=== PATIENT | female | born 1985 | race Two or more races ===

== ENCOUNTER 2019-09-06 12:33 | Inpatient (IN) | payer MEDICAID ==
[~2019-09-06] VITALS: Ht 160 cm; Wt 91.6 kg
[2019-09-06] MEDS ORDERED: SODIUM CHLORIDE 0.9% 1,000 ML IVB ONE (13:01)
[2019-09-06] MEDS ORDERED: PROMETHAZINE HCL 25 MG/ML 1ML IV PRN (13:15)
[2019-09-06 13:52] LABS: Eosinophils # (auto) 0.1 10 ^3/uL (0-0.8); Lymphocytes # (auto) 1.4 10 ^3/uL (0.4-5.4); Mean Corpuscular Hemoglobin 22.8 pg (28.0-32.0); Neutrophils # (auto) 5.7 10 ^3/uL (1.6-8.6); White Blood Cell 7.8 10^3/uL (4.4-10.8)
[2019-09-06 13:54] LABS: Basophils # (auto) 0.1 10 ^3/uL (0-0.2); Basophils % (auto) 0.7 % (0.0-2.0); Eosinophils % (auto) 1.3 % (0.0-7.0); Hematocrit 37.3 % (36.0-46.0); Hemoglobin 11.7 g/dL (12.2-16.2); Lymphocytes % (auto) 17.8 % (10.0-50.0); Mean Corpuscular Hgb Conc. 31.5 g/dL (32.0-36.0); Mean Corpuscular Volume 72.4 fL (80.0-100.0); Monocytes # (auto) 0.6 10 ^3/uL (0-1.3); Monocytes % (auto) 7.2 % (0.0-12.0); Platelet Count (auto) 417 10^3/uL (140-450); Red Blood Cells 5.16 10^6/uL (4.0-5.20); Red Cell Distribution Width 17.7 % (11.8-14.3)
[2019-09-06 14:11] LABS: Albumin 3.9 g/dL (3.4-5.0); BUN/Creatinine Ratio 12.4; Calcium 8.8 mg/dL (8.5-10.1); Magnesium 2.6 mg/dL (1.6-2.6); Potassium 3.6 mmol/L (3.5-5.1)
[2019-09-06 14:14] LABS: Bilirubin, Total 0.3 mg/dL (0.2-1.0); Total Protein 8.7 g/dL (6.4-8.2)
[2019-09-06 14:23] LABS: Urine Bacteria FEW /hpf (None Seen); Urine Blood Negative /uL (Negative); Urine Mucus FEW (None Seen); Urine Specific Gravity 1.023 (1.001-1.035); Urine WBC 182 /hpf (0 - 5); Urine WBC Clumps PRESENT /hpf (None Seen)
[2019-09-06] MEDS ORDERED: MORPHINE SULF INJ 2 MG/ML SYRINGE 1ML IV ONE (14:30)
[2019-09-06] MEDS ORDERED: cefTRIAXone 1GM/50ML D5W 50 ML IV ONE (15:00)
[2019-09-06] MEDS ORDERED: TEMAZEPAM 15 MG CAP PO PRN (18:30)
[2019-09-06] MEDS: FAMOTIDINE (10MG/ML) 2ML VL IV SCH (18:30)
[2019-09-06] MEDS ORDERED: ACETAMINOPHEN 500 MG TAB PO PRN (18:30)
[2019-09-06] MEDS ORDERED: MORPHINE SULF INJ 2 MG/ML SYRINGE 1ML IV PRN (18:30)
[2019-09-06] MEDS ORDERED: traMADol HCL 50 MG TAB PO PRN (18:30)
[2019-09-06] MEDS ORDERED: NITROGLYCERIN 0.4 MG SL TAB SL PRN (18:30)
[2019-09-06] MEDS ORDERED: SODIUM CHLORIDE 0.9% 2,450 ML IV ONE (18:30)
[2019-09-06] MEDS: MORPHINE SULF INJ 2 MG/ML SYRINGE 1ML IV PRN (18:45)
[2019-09-06 18:47] LABS: Amylase 64 U/L (25-115); Lipase 52 U/L (73-393)
[2019-09-06] MEDS ORDERED: LEVOTHYROXINE SODIUM 50 MCG TAB PO ONE (19:00)
[2019-09-06 22:00] VITALS: BP 139/97
--- NOTE | 2019-09-06 22:00 | NUR ---
MS admit from ER LOGAN TRUJILLO R admitted to tele/MS. Patient oriented to ALEXANDRA GARCIA RN, room 237. Patient weighed by bedscale and encouraged to call if they need something. All questions and concerns addressed, patient verbalized understanding. No S/S of distress or SOB. Patient reporting pain in her abdomen rated 10/10. Will medicate for pain as ordered. Bed locked, in lowest position, call light within reach, side rails up x2. Will continue to monitor Q 1 hr and PRN.
[2019-09-06] MEDS: PROMETHAZINE HCL 25 MG/ML 1ML IV PRN (22:12)
[2019-09-06] MEDS: SODIUM CHLORIDE 0.9% 1,000 ML IV SCH (22:22)
[2019-09-07] MEDS: MORPHINE SULF INJ 2 MG/ML SYRINGE 1ML IV PRN ×6 (00:35→21:37)
[2019-09-07] MEDS: PROMETHAZINE HCL 25 MG/ML 1ML IV PRN ×5 (04:37→21:36)
[2019-09-07] MEDS: SODIUM CHLORIDE 0.9% 1,000 ML IV SCH ×2 (04:37→14:33)
[2019-09-07 05:00] VITALS: BP 137/87
[2019-09-07] MEDS: FAMOTIDINE (10MG/ML) 2ML VL IV SCH (06:29)
[2019-09-07] MEDS ORDERED: LEVOTHYROXINE SODIUM 50 MCG TAB PO SCH (07:00)
--- NOTE | 2019-09-07 08:00 | NUR ---
OPENING SHIFT NOTE: PATIENT RESTING IN BED. RESPIRATIONS EVEN AND UNLABORED. PATIENT DENIES ANY COUGH OR ANY SOB. PATIENT HAS NO S/S OF DISTRESS AT THIS TIME. PATIENT UPDATED ON POC. PATIENT REPORTS THAT SHE HAD ONE OF EPISODE OF EMESIS EARLIER THIS AM. PATIENT IS COMPLAINING OF NAUSEA AND PAIN TO MID GASTRIC AREA 11/19, NON RADIATING. WILL MEDICATED PER EMAR. REPORTS EPISODES OF NAUSEA AND PAIN HAS HAPPENED BEFORE WHEN SHE SMOKED MARIJUANA. ADMITS TO SMOKING AGAIN. DENIES ANY OTHER SUBSTANCE USE. PATIENT UPDATED ON POC. BED IN LOWEST LOCKED POSITION WITH CALL LIGHT WITHIN REACH.
[2019-09-07 08:38] VITALS: BP 154/97
[2019-09-07] MEDS ORDERED: cefTRIAXone 1GM/50ML D5W 50 ML IV SCH (09:00)
[2019-09-07] MEDS: PANTOPRAZOLE 40 MG/10 ML VIAL INJ IV SCH ×2 (12:34→21:36)
[2019-09-07 12:45] VITALS: BP 137/97
[2019-09-07] MEDS ORDERED: LEVO175T31 PO (14:09)
--- NOTE | 2019-09-07 14:20 | NUR ---
CRISTIAN FRIEND REGARDING PATIENTS UPDATED MED REC. AWAITING CALL BACK.
[2019-09-07] MEDS: levoFLOXacin 500MG 100 ML IV SCH (14:34)
--- NOTE | 2019-09-07 15:08 | NUR ---
PATIENT TRANSFERRED TO ROOM 202. PATIENT ON CONTINOUS TELEMETRY READING. PATIENT HAS NO S/S OF DISTRESS NOTED. REPORT GIVEN TO VIRIDIANA DE LA TORRE.
--- NOTE | 2019-09-07 15:09 | NUR ---
INFORMED TELE OFFICE OF PATIENT BEING TRANPORTED TO ROOM 202.
--- NOTE | 2019-09-07 15:30 | NUR ---
Telemetry patient transferred from [facility],LOGAN R transferred from [facility]. Patient oriented to WIL SOUZA RN primary RN, unit, room, bed, and unit policies regarding patient care. Patient now on continuous telemetry monitoring, tele box # 32 and telemetry reading on arrival to unit is sinus rhythm 64. Patient is on room air, respirations even and unlabored. Patient denies pain at this time. Reviewed plan of care with patient, patient verbalized understanding. Bed in low and locked position, call light within reach. Will continue to monitor Q1 hour and PRN.
--- NOTE | 2019-09-07 17:40 | NUR ---
Dr. Wilfrid Holland at bedside Discussing plan of care with patient and this RN. Will call lab to follow up on blood work that has not be completed. Will continue to monitor Q1 hour and PRN.
[2019-09-07 17:52] VITALS: BP 129/72
--- NOTE | 2019-09-07 17:58 | NUR ---
Pain and Vomiting Patient is vomiting and states abdominal pain is 10/10. Will medicate per orders. Will continue to monitor Q1 hour and PRN.
--- NOTE | 2019-09-07 18:28 | NUR ---
Pain reassessment Patient resting in bed with eyes closed. No signs or symptoms of distress noted at this time. Bed in low and locked position, call light within reach. Will continue to monitor Q1 hour and PRN.
[2019-09-07 18:42] LABS: Basophils # (auto) 0 10 ^3/uL (0-0.2); Eosinophils # (auto) 0 10 ^3/uL (0-0.8); Eosinophils % (auto) 0.3 % (0.0-7.0)
[2019-09-07 18:44] LABS: Basophils % (auto) 0.4 % (0.0-2.0); Hematocrit 38.4 % (36.0-46.0); Lymphocytes % (auto) 10.2 % (10.0-50.0); Mean Corpuscular Hemoglobin 22.6 pg (28.0-32.0); Mean Corpuscular Hgb Conc. 31.2 g/dL (32.0-36.0); Mean Corpuscular Volume 72.5 fL (80.0-100.0); Monocytes # (auto) 0.6 10 ^3/uL (0-1.3); Monocytes % (auto) 6.5 % (0.0-12.0); Neutrophils % (auto) 82.6 % (37.0-80.0); Nucleated Red Blood Cells % 0.1 %; Platelet Count (auto) 389 10^3/uL (140-450); Red Cell Distribution Width 17.6 % (11.8-14.3); White Blood Cell 9.6 10^3/uL (4.4-10.8)
[2019-09-07 18:55] LABS: Calcium 8.7 mg/dL (8.5-10.1); Potassium 3.1 mmol/L (3.5-5.1)
[2019-09-07 19:01] LABS: BUN/Creatinine Ratio 7.2
--- NOTE | 2019-09-07 19:07 | NUR ---
Closing Note Report given to shift engineer RN. No signs or symptoms of distress.
[2019-09-07 22:00] VITALS: BP 128/79
[2019-09-07] MEDS: SOD CHL 0.9%/ KCL 20MEQ 1,000 ML IV SCH (22:15)
[2019-09-08] MEDS: ATORVASTATIN 20 MG TAB PO SCH ×2 (01:03→22:03)
[2019-09-08] MEDS: MORPHINE SULF INJ 2 MG/ML SYRINGE 1ML IV PRN ×5 (02:47→21:23)
[2019-09-08] MEDS: PROMETHAZINE HCL 25 MG/ML 1ML IV PRN ×5 (02:47→21:23)
[2019-09-08] MEDS: POTASSIUM CHL 20MEQ/100ML 100 ML IV SCH ×2 (02:48)
[2019-09-08 05:00] VITALS: BP 155/98
[2019-09-08 06:18] LABS: Basophils # (auto) 0 10 ^3/uL (0-0.2); Basophils % (auto) 0.4 % (0.0-2.0); Eosinophils # (auto) 0 10 ^3/uL (0-0.8); Eosinophils % (auto) 0.4 % (0.0-7.0); Hematocrit 37.2 % (36.0-46.0); Hemoglobin 11.7 g/dL (12.2-16.2); Lymphocytes # (auto) 1.2 10 ^3/uL (0.4-5.4); Lymphocytes % (auto) 14.3 % (10.0-50.0); Mean Corpuscular Hemoglobin 22.8 pg (28.0-32.0); Mean Corpuscular Hgb Conc. 31.4 g/dL (32.0-36.0); Mean Corpuscular Volume 72.8 fL (80.0-100.0); Monocytes # (auto) 0.5 10 ^3/uL (0-1.3); Monocytes % (auto) 6.4 % (0.0-12.0); Neutrophils # (auto) 6.4 10 ^3/uL (1.6-8.6); Neutrophils % (auto) 78.5 % (37.0-80.0); Platelet Count (auto) 398 10^3/uL (140-450); Red Blood Cells 5.11 10^6/uL (4.0-5.20); Red Cell Distribution Width 17.5 % (11.8-14.3); White Blood Cell 8.2 10^3/uL (4.4-10.8)
[2019-09-08 06:37] LABS: Potassium 3.7 mmol/L (3.5-5.1)
[2019-09-08] MEDS: LEVOTHYROXINE SODIUM 25 MCG TAB PO SCH (06:43)
[2019-09-08] MEDS: LEVOTHYROXINE SODIUM 100 MCG TAB PO SCH (06:43)
[2019-09-08 06:44] LABS: BUN/Creatinine Ratio 8.6; Calcium 8.8 mg/dL (8.5-10.1)
--- NOTE | 2019-09-08 07:30 | NUR ---
RECEIVED REPORT FROM NIGHT NURSE. PATIENT RESTING IN BED, NO DISTRESS NOTED.
[2019-09-08 08:24] VITALS: BP 143/99
[2019-09-08] MEDS: SOD CHL 0.9%/ KCL 20MEQ 1,000 ML IV SCH ×2 (10:45→17:05)
[2019-09-08] MEDS: levoFLOXacin 500MG 100 ML IV SCH (10:45)
[2019-09-08] MEDS: PANTOPRAZOLE 40 MG/10 ML VIAL INJ IV SCH ×2 (10:45→22:03)
--- NOTE | 2019-09-08 11:00 | NUR ---
PATIENT TAKING SHOWER.
[2019-09-08 12:35] VITALS: BP 166/111
--- NOTE | 2019-09-08 15:27 | NUR ---
PATIENT TAKING SHOWER.
--- NOTE | 2019-09-08 16:32 | NUR ---
PATIENT TAKING A SHOWER.
[2019-09-08 16:43] VITALS: BP 159/96
--- NOTE | 2019-09-08 19:00 | NUR ---
Opening Shift Note Assumed care of patient, awake and alert. Instructed on POC and to call for assist PRN, will continue to monitor for changes Q1hr and PRN.
--- NOTE | 2019-09-08 20:50 | NUR ---
Pt took a shower.
[2019-09-08 22:00] VITALS: BP 141/89
[2019-09-08] MEDS: metroNIDAZOLE 500MG/100ML 100 ML IV SCH (22:04)
[2019-09-09] VITALS (7 sets, daily range): BP systolic 129–156; BP diastolic 87–107
--- NOTE | 2019-09-09 00:45 | NUR ---
Pt took a shower.
[2019-09-09] MEDS: PROMETHAZINE HCL 25 MG/ML 1ML IV PRN ×6 (01:15→23:11)
[2019-09-09] MEDS: MORPHINE SULF INJ 2 MG/ML SYRINGE 1ML IV PRN ×6 (01:15→23:11)
[2019-09-09] MEDS: SOD CHL 0.9%/ KCL 20MEQ 1,000 ML IV SCH ×3 (04:15→22:38)
[2019-09-09] MEDS: metroNIDAZOLE 500MG/100ML 100 ML IV SCH ×3 (05:18→21:33)
[2019-09-09 06:10] LABS: Basophils # (auto) 0 10 ^3/uL (0-0.2); Basophils % (auto) 0.2 % (0.0-2.0); Hematocrit 37.1 % (36.0-46.0); Monocytes % (auto) 6.8 % (0.0-12.0); Red Cell Distribution Width 17.8 % (11.8-14.3)
[2019-09-09 06:12] LABS: Eosinophils # (auto) 0 10 ^3/uL (0-0.8); Eosinophils % (auto) 0.6 % (0.0-7.0); Hemoglobin 11.8 g/dL (12.2-16.2); Lymphocytes # (auto) 1.5 10 ^3/uL (0.4-5.4); Lymphocytes % (auto) 18.9 % (10.0-50.0); Mean Corpuscular Hgb Conc. 31.8 g/dL (32.0-36.0); Mean Corpuscular Volume 72.5 fL (80.0-100.0); Monocytes # (auto) 0.5 10 ^3/uL (0-1.3); Neutrophils # (auto) 5.9 10 ^3/uL (1.6-8.6); Neutrophils % (auto) 73.5 % (37.0-80.0); Nucleated Red Blood Cells % 0.1 %; Platelet Count (auto) 364 10^3/uL (140-450); Red Blood Cells 5.12 10^6/uL (4.0-5.20)
[2019-09-09 06:30] LABS: Potassium 3.6 mmol/L (3.5-5.1)
[2019-09-09 06:44] LABS: BUN/Creatinine Ratio 12.3; Calcium 8.7 mg/dL (8.5-10.1)
[2019-09-09] MEDS: LEVOTHYROXINE SODIUM 25 MCG TAB PO SCH (06:52)
[2019-09-09] MEDS: LEVOTHYROXINE SODIUM 100 MCG TAB PO SCH (06:52)
--- NOTE | 2019-09-09 07:20 | NUR ---
Opening Shift Note Assumed care of patient, awake and alert X4. No S/S of distress/SOB or pain noted at this time, on room air, no N/V noted at this time, HOB >30. Instructed on POC and to call for assist PRN, call light within reach, will continue to monitor for changes Q1hr and PRN.
--- NOTE | 2019-09-09 09:19 | NUR ---
PT TAKING A SHOWER PT AXOX4, NO DISTRESS NOTED, CONT TO C/O NAUSEA, NO EMESIS AT THIS TIME, NO CURRENT ORDER TO SHOWER AND PT IS ON CONTINUOUS TELEMETRY, PT STATES " DR PORTILLO TOLD ME TO TAKE HOT SHOWERS AND I HAVE BEEN TAKING SHOWERS", CONT CARE
[2019-09-09] MEDS: levoFLOXacin 500MG 100 ML IV SCH (10:05)
[2019-09-09] MEDS: PANTOPRAZOLE 40 MG/10 ML VIAL INJ IV SCH ×2 (10:05→21:33)
--- NOTE | 2019-09-09 10:20 | NUR ---
GI DR PORTILLO AT BEDSIDE, DISCUSSING POC, STATES HE HAD INSTRUCTED PT TO TAKE WARM BATHS TO EASE N/V, ORDER ENTERED
--- NOTE | 2019-09-09 14:07 | NUR ---
Est energy needs [id number] kcal (20-23 kcal/kg BW 90.6kg) Est protein needs 58-86g (1-1.5g/kg BW 90.6kg) Will reassess prn. Addendum: 09/09/19 at [address] Amended: Links added.
--- NOTE | 2019-09-09 18:25 | NUR ---
ACTIVITY NOTED PT AMBULATING, NO DISTRESS NOTED, GAIT STEADY, CONT CARE
--- NOTE | 2019-09-09 19:30 | NUR ---
Opening note Patient resting in bed with even and unlabored respirations, no distress noted. Instructed patient on POC, fall precautions and to call for assistance as needed. Patient verbalized understanding. Fall precautions in place with call light within reach.
--- NOTE | 2019-09-09 20:56 | NUR ---
Patient's mother called for an update No password on account. Patient resting in bed with eyes closed. Patient stated "Tell her I will call her tomorrow." Message provided to patient's mother. Patient's mother verbalized understanding.
[2019-09-09] MEDS: ATORVASTATIN 20 MG TAB PO SCH (21:33)
--- NOTE | 2019-09-09 21:38 | NUR ---
Patient resting in bed with even and unlabored respirations, no distress noted. Fall precautions in place with call light within reach.
--- NOTE | 2019-09-09 22:42 | NUR ---
Patient requesting to take a shower IV covered and secured. Fall and safety precautions instructed to the patient. Patient verbalized understanding.
--- NOTE | 2019-09-09 23:22 | NUR ---
Patient returned to bed with no complications noted Patient requested PRN pain medication and PRN anti-nausea medication. Medications administered per MD order.
[2019-09-10] VITALS (7 sets, daily range): BP systolic 117–145; BP diastolic 80–98
--- NOTE | 2019-09-10 02:42 | NUR ---
Patient resting in bed with eyes closed respirations even and unlabored respirations, no distress noted. Fall precautions in place with call light within reach.
--- NOTE | 2019-09-10 03:14 | NUR ---
Patient resting in bed in semi-fowlers position respirations even and unlabored, no distress noted. Eyes closed. Family at bedside. Addendum: 09/10/19 at 0317 by Urvashi Ness RN No family at bedside.
--- NOTE | 2019-09-10 03:33 | NUR ---
Care endorsed to VIRIDIANA Underwood.
--- NOTE | 2019-09-10 03:35 | NUR ---
PT CARE RESUMED Assumed care of patient, awake and alert X4. No S/S of distress/SOB noted at this time, on room air, currently c/o N/V and abd pain and will medicate as ordered, HOB >30, IV 20g patent to left ac, Instructed on POC and to call for assist PRN, call light within reach, will continue to monitor for changes Q1hr and PRN.
[2019-09-10] MEDS: PROMETHAZINE HCL 25 MG/ML 1ML IV PRN ×5 (03:58→19:48)
[2019-09-10] MEDS: MORPHINE SULF INJ 2 MG/ML SYRINGE 1ML IV PRN ×5 (03:59→19:47)
[2019-09-10 05:48] LABS: BUN/Creatinine Ratio 12.2; Calcium 8.4 mg/dL (8.5-10.1); Potassium 3.3 mmol/L (3.5-5.1)
[2019-09-10] MEDS: LEVOTHYROXINE SODIUM 100 MCG TAB PO SCH (06:32)
[2019-09-10] MEDS: metroNIDAZOLE 500MG/100ML 100 ML IV SCH ×3 (06:32→21:35)
[2019-09-10] MEDS: LEVOTHYROXINE SODIUM 25 MCG TAB PO SCH (06:33)
[2019-09-10] MEDS: PANTOPRAZOLE 40 MG/10 ML VIAL INJ IV SCH ×2 (08:15→21:35)
[2019-09-10] MEDS: levoFLOXacin 500MG 100 ML IV SCH (08:15)
[2019-09-10] MEDS: SOD CHL 0.9%/ KCL 20MEQ 1,000 ML IV SCH ×2 (10:15→20:15)
--- NOTE | 2019-09-10 12:05 | NUR ---
MD UPDATE SPOKE WITH DR Wilfrid LIANG, UPDATED ON PT CURRENT STATUS, PT CONT TO C/O ABD PAIN AND NAUSEA, ORRDER OBTAINED TO ADVANCE DIET TO SOFT, HE WILL COME SEE PT SOON
--- NOTE | 2019-09-10 18:15 | NUR ---
GI CLEARANCE SPOKE WITH DR PORTILLO, STATES IF PATIENT IS TILL SYMPTOMATIC, THEN PATIENT IS NOT CLEARED FOR DISCHARGE AND CHANGE DIET TO FULL LIQUID, WILL NOTIFY DR LIANG
--- NOTE | 2019-09-10 18:25 | NUR ---
AT BEDSIDE DR LIANG AT BEDSIDE, AWARE DR PORTILLO DID NOT CLEAR PT FOR DC, ORDER EDITED AND WILL CONT CARE
--- NOTE | 2019-09-10 19:15 | NUR ---
OPENING SHIFT NOTE Assumed care of patient who is A&O x4. Currently on RA with no s/s of distress. Reports nausea and abdominal pain after attempting to eat. Patient to be medicated according to orders. Patient is ambulatory without the use of assistive devices. PIV in left AC is intact and patent. IVF infusing as ordered. POC discussed and all questions answered. Bed is in low locked position with side rails up x2. Call light is within reach and patient encouraged to call for assistance when needed. Will continue to monitor for changes PRN.
[2019-09-10] MEDS: ATORVASTATIN 20 MG TAB PO SCH (21:35)
[2019-09-11] VITALS (7 sets, daily range): BP systolic 113–136; BP diastolic 73–85
[2019-09-11] MEDS: MORPHINE SULF INJ 2 MG/ML SYRINGE 1ML IV PRN ×6 (01:16→23:46)
[2019-09-11] MEDS: PROMETHAZINE HCL 25 MG/ML 1ML IV PRN ×4 (01:17→23:46)
--- NOTE | 2019-09-11 01:25 | NUR ---
PAIN/NAUSEA Patient reports 6/10 diffuse abdominal pain and nausea. Medicated according to orders. Will continue to monitor.
--- NOTE | 2019-09-11 06:15 | NUR ---
PAIN/NAUSEA Patient reports abdominal pain and nausea, requesting medication. Morphine 2mg administered according to orders. Patient reports pain to IV site with flushing following administration of medication. Phenergan not administered. New IV access to be obtained.
--- NOTE | 2019-09-11 06:25 | NUR ---
IV removal IV to left AC is painful. DC'd with clean sterile technique, catheter fully intact. Pressure dressing applied to site. Patient tolerated well.
[2019-09-11] MEDS: metroNIDAZOLE 500MG/100ML 100 ML IV SCH ×3 (06:37→22:52)
[2019-09-11] MEDS: SOD CHL 0.9%/ KCL 20MEQ 1,000 ML IV SCH ×2 (06:37→16:15)
[2019-09-11] MEDS: LEVOTHYROXINE SODIUM 25 MCG TAB PO SCH (06:41)
[2019-09-11] MEDS: LEVOTHYROXINE SODIUM 100 MCG TAB PO SCH (06:41)
--- NOTE | 2019-09-11 07:30 | NUR ---
Opening Shift Note Assumed care of patient, awake and alert. No S/S of distress/SOB or pain. Instructed on POC and to call for assist PRN, will continue to monitor for changes Q1hr and PRN. Bed is locked and in lowest position. Call light within reach.
--- NOTE | 2019-09-11 09:00 | NUR ---
IV PLACEMENT PATIENT DID NOT HAVE IV ACCESS FOR MEDICATION ADMINISTRATION. PATIENT VERBALIZED UNDERSTANDING OF IV REQUIRED. IV PLACED ON LEFT HAND 20 G USING CLEAN AND STERILE TECHNIQUE. IV IS CLEAN AND INTACT. PATIENT TOLERATED IV INSERTION WITH NO SIGNS OF DISTRESS OR PAIN.
[2019-09-11] MEDS: PANTOPRAZOLE 40 MG/10 ML VIAL INJ IV SCH ×2 (09:52→22:51)
[2019-09-11] MEDS: levoFLOXacin 500MG 100 ML IV SCH (09:53)
--- NOTE | 2019-09-11 11:58 | NUR ---
Nutrition Followup Notes Pt wt is 92.2 kg Pt was sleeping with no relatives at bedside when rounded this morning. Pt is with a regular diet, appetite is poor aeb ave 25% x5 PO intake per RN doc. Noted pt abd pain is improving. Will continue to monitor PO status, skin status, pertinent labs and weight trends. Will f/u in 3-5 days. Est energy needs [id number] kcal (20-23 kcal/kg BW 90.6kg) Est protein needs 58-86g (1-1.5g/kg BW 90.6kg) Will reassess prn. LABS: POT 3.3 L, TRIGLYC 261 H, LDL 124 H GI: Pt had BM on 09/01 per RN doc BS: 22 low risk Refer to wound assessment report for full details. PES: Obesity r/t caloric intake in excess of needs aeb pt with BMI of 35.4kg/m2 Comments 1) Continue to monitor po intake, labs, skin 2) Refer pt to [facility] on dc 3) Continue current plan of care
--- NOTE | 2019-09-11 15:05 | NUR ---
IV insertion IV access obtained, via clean sterile technique by inserting 20 gauge catheter at RAC after 2 attempts. IV secured properly. No trauma to site. Patient tolerated procedure well.
--- NOTE | 2019-09-11 16:15 | NUR ---
assessment Patient has no post discharge needs identified. Addendum: 09/11/19 at 1615 by Karolina ANGUIANO Amended: Links added.
--- NOTE | 2019-09-11 16:50 | NUR ---
GI SPOKE WITH DR BANDAR MD INFORMED PT WAS REQUESTING A SALAD FOR DINNER, PT CONT TO C/O NAUSEA AND ABDOMINAL PAIN, DR PORTILLO STATES SHE WILL CONT WITH A PUREED DIET. PT AWARE
[2019-09-11] MEDS: ATORVASTATIN 20 MG TAB PO SCH (22:51)
[2019-09-12] MEDS: SOD CHL 0.9%/ KCL 20MEQ 1,000 ML IV SCH (02:15)
--- NOTE | 2019-09-12 03:05 | NUR ---
PT ROUNDS PT CURRENTLY SLEEPING, BREATHING EVEN AND UNLABORED, ON ROOM AIR, NO DISTRESS NOTED, EASILY AWAKENED VIA VERBAL STIMULI, NO C/O PAIN OR NAUSEA AT THIS TIME, BED ALARM ON AND CALL LIGHT WITHIN REACH
[2019-09-12] MEDS: MORPHINE SULF INJ 2 MG/ML SYRINGE 1ML IV PRN (04:33)
[2019-09-12] MEDS: PROMETHAZINE HCL 25 MG/ML 1ML IV PRN ×2 (04:33→09:35)
[2019-09-12 05:14] VITALS: BP 123/81
[2019-09-12] MEDS ORDERED: POTASSIUM EFFERVESENT TAB 25 MEQ PO ONE (06:15)
[2019-09-12] MEDS ORDERED: ACETAMINOPHEN 500 MG TAB PO PRN (06:30)
[2019-09-12] MEDS ORDERED: PROM25TA5 OR (06:40)
[2019-09-12] MEDS ORDERED: LEVOTHYROXINE SODIUM 88 MCG TAB PO SCH ×2 (07:00)
[2019-09-12 08:00] VITALS: BP 123/81
[2019-09-12 09:29] VITALS: BP 123/81
[2019-09-12] MEDS: PANTOPRAZOLE 40 MG/10 ML VIAL INJ IV SCH (09:35)
--- NOTE | 2019-09-12 10:00 | NUR ---
Dr. Prestno Holland came over, patient can be discharged today. Piter Montes De Oca said patient can be discharged as per GI perspective. Patient able to tolerate regular breakfast.
--- NOTE | 2019-09-12 11:20 | NUR ---
Discharge instructions given as ordered. Encourage to follow up with PMD as instructed. All questions and concerns addressed. Patient verbalized understanding. Medication reconciliation form completed and copy given to patient. IV removed with catheter intact, pressure dressing applied. Telemetry unit returned to ICU. Patient is ambulatory, has signed AMA form to smoke downstairs, patient refused to be taken to vehicle via wheelchair, patient with all personal belongings. Patient said her car is parked at the parking area, she will drive home. No narcotic given. No distress noted at time of departure.
== END 2019-09-12 11:20 | disposition home or self-care (01) | DRG 249 ==
LOC: ER 12:33 → TELE 12:34 → TELE-EAST 21:05 → TELE-CENTR 09-07 15:30
PROVIDERS: ADMIT Internal Medicine; ATTEND Internal Medicine
DX: R11.2 Nausea with vomiting, unspecified (principal); E66.01 Morbid (severe) obesity due to excess calories; F12.988 Cannabis use, unspecified with other cannabis-induced disorder; N39.0 Urinary tract infection, site not specified; D64.9 Anemia, unspecified; E03.9 Hypothyroidism, unspecified; F12.90 Cannabis use, unspecified, uncomplicated; Z20.828 Contact with and (suspected) exposure to other viral communicable diseases; E78.5 Hyperlipidemia, unspecified; E87.6 Hypokalemia; F17.210 Nicotine dependence, cigarettes, uncomplicated; Z82.49 Family history of ischemic heart disease and other diseases of the circulatory system; Z68.36 Body mass index [BMI] 36.0-36.9, adult; Z83.3 Family history of diabetes mellitus
CPT/HCPCS: 36415; 71045; 74176; 76705; 80048; 80053; 80061; 81001; 82150; 83605; 83690; 83735; 84443; 84702; 85025; 87040; 87086; 96365; 96375; C9113; G0378; J0696; J1956; J3480; J3490

== ENCOUNTER 2020-12-14 10:25 | Emergency (ER) | payer MEDICAID ==
[~2020-12-14] VITALS: Ht 160 cm; Wt 93.0 kg
[~2020-12-14 10:25] MED LIST: LEVO175T66 PO; PROM25TA5 OR
[2020-12-14] MEDS ORDERED: ONDANSETRON ODT 4 MG TAB PO ONE (10:45)
[2020-12-14] MEDS ORDERED: SODIUM CHLORIDE 0.9% 1,000 ML IVB ONE (10:45)
[2020-12-14 11:21] LABS: Basophils # (auto) 0 10 ^3/uL (0-0.2); Eosinophils # (auto) 0.1 10 ^3/uL (0-0.8); Lymphocytes # (auto) 1.5 10 ^3/uL (0.4-5.4); Monocytes # (auto) 0.5 10 ^3/uL (0-1.3); Neutrophils # (auto) 5.7 10 ^3/uL (1.6-8.6); Red Cell Distribution Width 17.1 % (11.8-14.3)
[2020-12-14 11:25] LABS: Basophils % (auto) 0.6 % (0.0-2.0); Hematocrit 35.1 % (36.0-46.0); Hemoglobin 11.6 g/dL (12.2-16.2); Lymphocytes % (auto) 19.5 % (10.0-50.0); Mean Corpuscular Hemoglobin 25.3 pg (28.0-32.0); Mean Corpuscular Volume 76.7 fL (80.0-100.0); Monocytes % (auto) 6.5 % (0.0-12.0); Neutrophils % (auto) 72.4 % (37.0-80.0); Red Blood Cells 4.57 10^6/uL (4.0-5.20); White Blood Cell 7.9 10^3/uL (4.4-10.8)
[2020-12-14 11:34] LABS: Potassium 3.7 mmol/L (3.5-5.1)
[2020-12-14 11:41] LABS: BUN/Creatinine Ratio 8.2; Bilirubin, Total 0.4 mg/dL (0.2-1.0); Calcium 9.3 mg/dL (8.5-10.1); Total Protein 8.2 g/dL (6.4-8.2)
[2020-12-14 12:55] LABS: Urine Bacteria NONE SEEN /hpf (None Seen); Urine Blood Negative /uL (Negative); Urine Mucus FEW (None Seen); Urine Specific Gravity 1.028 (1.001-1.035); Urine WBC 2 /hpf (0 - 5)
[2020-12-14 13:29] VITALS: BP 118/87
== END 2020-12-14 13:46 | disposition home or self-care (01) ==
LOC: ER 10:25
DX: O20.0 Threatened abortion (principal); O23.41 Unspecified infection of urinary tract in pregnancy, first trimester; O99.321 Drug use complicating pregnancy, first trimester; F12.90 Cannabis use, unspecified, uncomplicated; O99.331 Smoking (tobacco) complicating pregnancy, first trimester; Z3A.01 Less than 8 weeks gestation of pregnancy; Z88.6 Allergy status to analgesic agent
CPT/HCPCS: 36415; 76801; 76817; 80053; 81001; 84702; 85025; 96360; 99285; J7030; Q0162